=== PATIENT | female | born 1980 | race Caucasian/White ===

== ENCOUNTER 2018-09-15 08:09 | Inpatient (IN) | payer OTHER ==
[2018-09-15] VITALS (12 sets, daily range): BP systolic 94–122; BP diastolic 57–84
[~2018-09-15] VITALS: Ht 160 cm; Wt 90.3 kg
[2018-09-15] MEDS ORDERED: INSULIN REGULAR, HUMAN 300 UNIT/3 ML VIAL ONE (09:13)
[2018-09-15] MEDS ORDERED: POLYMYXIN B SULFATE 500,000 UNITS, BACITRACIN 50,000 UNITS, NORMAL SALINE 20 ML MC ONE ×3 (09:15)
[2018-09-15] MEDS ORDERED: diphenhydrAMINE 50 MG/1 ML VIAL MC ONE (09:16)
[2018-09-15] MEDS ORDERED: METOCLOPRAMIDE HCL 10 MG/2 ML VIAL IV ONE (09:16)
[2018-09-15] MEDS ORDERED: IV NORMAL SALINE 1000 ML BAG IV ONE (09:16)
[2018-09-15] MEDS ORDERED: PROPOFOL 200 MG/20 ML BOTTLE IV ONE (09:16)
[2018-09-15] MEDS ORDERED: IRR NORMAL SALINE IRRIGATION 1,000 ML BOTTLE IR ONE (09:16)
[2018-09-15] MEDS ORDERED: LIDOCAINE HCL 1% 20 ML VIAL MC ONE (09:16)
[2018-09-15] MEDS ORDERED: ONDANSETRON 4 MG/2 ML VIAL IV ONE (09:16)
[2018-09-15] MEDS ORDERED: SEVOFLURANE 250 ML BOTTLE IH ONE (09:16)
[2018-09-15] MEDS ORDERED: CEFAZOLIN 1 G VIAL MC ONE (09:16)
[2018-09-15 09:24] LABS: *URINE HCG, QUAL NEGATIVE (NEGATIVE)
[2018-09-15] MEDS ORDERED: BUPIVACAINE/EPI PF 0.5% 10 ML VIAL ONE (09:39)
[2018-09-15] MEDS ORDERED: MIDAZOLAM HCL 2 MG/2 ML VIAL ONE (09:56)
[2018-09-15] MEDS ORDERED: FENTANYL CITRATE 100 MCG/2 ML AMPUL ONE ×2 (09:56→12:54)
[2018-09-15] MEDS ORDERED: HYDROMORPHONE 2 MG/1 ML DISP.SYRIN ONE (09:56)
[2018-09-15] MEDS ORDERED: ROCURONIUM BROMIDE 50 MG/5 ML VIAL ONE (09:57)
[2018-09-15] MEDS ORDERED: ALBUTEROL SULFATE 2.5 MG/3 ML NEBU ONE (12:18)
[2018-09-15] MEDS ORDERED: IPRATROPIUM BROMIDE 0.5 MG/2.5 ML NEBU ONE (12:18)
[2018-09-15] MEDS ORDERED: diphenhydrAMINE 50 MG/1 ML VIAL ONE (12:49)
--- NOTE | 2018-09-15 14:20 | NUR ---
Received patient from Recovery nurse, oriented patient to room and recorded vital signs. Shortly after exiting the room patients' family yelled out that patient could not breathe. Evaluated patient to find that she had stridor. Rapid response called and orders received for a chest xray and solumedrol IV 125mg. Albuterol administered by Respiratory therapy. DEYANIRA Skinner was at the bedside and requested that the patient be put on telemetry and transfer to ICU as soon as possible.
--- NOTE | 2018-09-15 15:05 | NUR ---
Report called to Julio C WU in ICU and patient transported with Respiratory therapy and this advertising copywriter.
--- NOTE | 2018-09-15 15:05 | NUR ---
Full telephone SBAR report received by RN Mari 3rd floor.
[2018-09-15] MEDS ORDERED: ONDANSETRON 4 MG/2 ML VIAL IV PRN (15:30)
[2018-09-15] MEDS: KETOROLAC TROMETHAMINE 15 MG INJ IVP PRN (15:30)
[2018-09-15] MEDS ORDERED: IV NS 1000 ML 1,000 ML IV PRN (15:30)
[2018-09-15] MEDS ORDERED: methylPREDNISolone SOD SUCC 125 MG/2 ML VIAL IV ONE (15:30)
[2018-09-15] MEDS ORDERED: DEXTROSE 50% 50 ML DISP.SYRIN IV PRN (15:30)
[2018-09-15] MEDS ORDERED: INSULIN REGULAR, HUMAN 300 UNITS/3 ML VIAL SQ PRN (15:30)
[2018-09-15] MEDS ORDERED: ACETAMINOPHEN 325 MG TABLET PO PRN (15:30)
[2018-09-15] MEDS: FAMOTIDINE. 20 MG/2 ML VIAL IV SCH ×2 (15:42→20:57)
[2018-09-15] MEDS: ALBUTEROL SULFATE 1.25 MG/3 ML NEBU NEB SCH ×3 (15:48→23:03)
[2018-09-15] MEDS: IPRATROPIUM BROMIDE 0.5 MG/2.5 ML NEBU NEB SCH ×2 (15:49→19:29)
[2018-09-15] MEDS: BLOOD SUGAR DIAGNOSTIC 1 EACH STRIP VI SCH ×2 (15:54→21:00)
[2018-09-15] MEDS: INSULIN REGULAR, HUMAN 300 UNIT/3 ML VIAL SQ PRN ×2 (15:57→23:01)
[2018-09-15] MEDS: SENNOSIDES/DOCUSATE SODIUM TABLET PO SCH (16:59)
[2018-09-15 17:00] LABS: BASOPHILS % (AUTO) 0.3 % (0.0-2.0); EOSINOPHILS % (AUTO) 0.1 % (0.0-7.0); HEMATOCRIT 31.1 % (31.2-41.9); HEMOGLOBIN 9.8 g/dL (10.9-14.3); LYMPHOCYTES # (AUTO) 1.2 K/uL (20.0-40.0); LYMPHOCYTES % (AUTO) 11.3 % (20.5-51.5); MEAN CORPUSCULAR HEMOGLOBIN 21.4 uug (24.7-32.8); MEAN CORPUSCULAR HGB CONC 32 g/dL (32.3-35.6); MEAN CORPUSCULAR VOLUME 67.8 fL (75.5-95.3); MONOCYTES # (AUTO) 0.3 K/uL (2.0-10.0); MONOCYTES % (AUTO) 2.5 % (0.0-11.0); NEUTROPHILS # (AUTO) 8.9 K/uL (1.8-8.9); NEUTROPHILS % (AUTO) 85.8 % (38.5-71.5); PLATELET COUNT (AUTO) 436 K/uL (179-408); RED BLOOD CELL COUNT(AUTO) 4.59 MIL/uL (3.63-4.92); WHITE BLOOD COUNT (AUTO) 10.3 K/uL (3.8-11.8)
[2018-09-15 17:07] LABS: CREATININE 0.6 mg/dL (0.6-1.3); MAGNESIUM 1.7 mg/dL (1.8-2.4); PHOSPHOROUS 3.3 mg/dL (2.5-4.9); POTASSIUM 3.8 mmol/L (3.5-5.1)
--- NOTE | 2018-09-15 17:25 | NUR ---
DEYANIRA Skinner here to see pt. Full report given. New orders received.
[2018-09-15] MEDS: HYDROCODONE/APAP 5-325MG TABLET PO PRN (17:38)
[2018-09-15] MEDS: ENOXAPARIN SODIUM 40 MG/0.4 ML DISP.SYRIN SQ SCH (20:59)
[2018-09-15] MEDS: methylPREDNISolone SOD SUCC 40 MG/ML VIAL IV SCH (21:16)
[2018-09-16] VITALS (13 sets, daily range): BP systolic 90–133; BP diastolic 51–84
[2018-09-16] MEDS: KETOROLAC TROMETHAMINE 15 MG INJ IVP PRN ×3 (02:31→15:56)
[2018-09-16] MEDS: ALBUTEROL SULFATE 1.25 MG/3 ML NEBU NEB SCH ×6 (03:03→23:27)
--- NOTE | 2018-09-16 03:34 | NUR ---
1999- nurses notes- awake , alert, oriented. conversed with pt. while eating hs snack pt. voice out her complaint about the hospital , i talked to her that this hospital is good. pt. not happy to hear this.2099- pt calls to void. i told her she is in icu no bathroom in the room but then pt. condition use only 1 arm the left arm in sling with s/p lt. shoulder surgery i dont want her to have issue while she will be out of bed.since she complaint what she had been i padded the bed with big pad but pt urinated extra large volume of urine her urine travelled up to her left foot soak the big pad and also almost fill up the bedpan.she c/o already with rashes on this urine in her skin so i hurriedly with wash her. she decided to get up and i assisted her, she was taking pictures for everything inside the room hersef wth godwin,/ me. talked to her thats not allowed, i started to clean her mattress but hollering she need to get a new bed . new bed replaced and everyting i changed. gown, scd, new nasal cannula etc . foods, medications, water ice, ice pack to lt shoulder especially pain med given, everytime i change glove i let her to see the new glove box i take it from. even the supervisor tubing was there i took a new one she complaint i did not change the glove in my hand. i allowed her to all her request and demand especially her pain meds.
[2018-09-16] MEDS: methylPREDNISolone SOD SUCC 40 MG/ML VIAL IV SCH ×3 (06:08→23:12)
[2018-09-16] MEDS: HYDROCODONE/APAP 5-325MG TABLET PO PRN ×2 (06:49→11:39)
--- NOTE | 2018-09-16 07:30 | NUR ---
received report from night nurse, states pt in pain and was given norco at 0600.
[2018-09-16 07:39] LABS: BASOPHILS % (AUTO) 0.2 % (0.0-2.0); HEMATOCRIT 29.1 % (31.2-41.9); HEMOGLOBIN 9.4 g/dL (10.9-14.3); LYMPHOCYTES # (AUTO) 1.8 K/uL (20.0-40.0); LYMPHOCYTES % (AUTO) 17.2 % (20.5-51.5); MEAN CORPUSCULAR HEMOGLOBIN 21.8 uug (24.7-32.8); MEAN CORPUSCULAR HGB CONC 32 g/dL (32.3-35.6); MEAN CORPUSCULAR VOLUME 67.8 fL (75.5-95.3); MONOCYTES # (AUTO) 0.7 K/uL (2.0-10.0); MONOCYTES % (AUTO) 6.3 % (0.0-11.0); NEUTROPHILS # (AUTO) 8.2 K/uL (1.8-8.9); NEUTROPHILS % (AUTO) 76.3 % (38.5-71.5); PLATELET COUNT (AUTO) 430 K/uL (179-408); RED BLOOD CELL COUNT(AUTO) 4.29 MIL/uL (3.63-4.92); WHITE BLOOD COUNT (AUTO) 10.7 K/uL (3.8-11.8)
--- NOTE | 2018-09-16 07:44 | NUR ---
0600- slept well after giving the toradol 15mg iv given. ice pack to left shoulder. son at bedside. .endorsed.
--- NOTE | 2018-09-16 08:00 | NUR ---
pt c/o pain, 10/07, tried to change position, sittin up and giving lotion and relaxation breaths, pt has swelling to left shoulder and down the back and arm, good capilary refills to digits, sling in place, pt sat up to BSC, tolerated well with minimal assist, slight dizziness and rested before standing, 95%RA.
[2018-09-16] MEDS: IPRATROPIUM BROMIDE 0.5 MG/2.5 ML NEBU NEB SCH ×5 (08:08→23:28)
[2018-09-16 08:10] LABS: CREATININE 0.6 mg/dL (0.6-1.3); PHOSPHOROUS 3.8 mg/dL (2.5-4.9); POTASSIUM 3.8 mmol/L (3.5-5.1)
[2018-09-16] MEDS: BLOOD SUGAR DIAGNOSTIC 1 EACH STRIP VI SCH ×4 (08:31→21:03)
[2018-09-16] MEDS: INSULIN REGULAR, HUMAN 300 UNIT/3 ML VIAL SQ PRN ×4 (08:36→21:25)
[2018-09-16] MEDS: SENNOSIDES/DOCUSATE SODIUM TABLET PO SCH (09:22)
[2018-09-16] MEDS: FAMOTIDINE. 20 MG/2 ML VIAL IV SCH (09:28)
--- NOTE | 2018-09-16 10:00 | NUR ---
Pt ambulated down liz with PT 300 feet on RA, stand by assist, PT recommend cane, notified yard manager Sallie. Hooked pt back to monitor, denies pain.
--- NOTE | 2018-09-16 11:30 | NUR ---
Pt BS 311, covered with 16 units of insulin, pt moved from chair to bed, c/o pain 10/07. pt denies need to void at this time.
--- NOTE | 2018-09-16 12:30 | NUR ---
Report given to BRYCE Robb transported via w/c, pain 05/07
--- NOTE | 2018-09-16 12:39 | NUR ---
Report received from BRYCE Benedict.
[2018-09-16] MEDS: MORPHINE SULFATE 2 MG/1 ML DISP.SYRIN IM PRN (13:49)
--- NOTE | 2018-09-16 19:15 | NUR ---
PATIENT ALERT ORIENTED, NO SOB NO CHEST PAIN NOTED. CONT ON PAIN MANAGEMENT, ICE PACK IN PLACE OF LEFT SHOULDER FOR PAIN AND DISCOMFORT.COMPLAIN OF MILD PAIN WILL MEDICATED FOR PAIN ORDERED. PATIENT AMBULATE TO BATHROOM FOR BLADDER ELIMINATION. CALL LIGHT WITHIN REACH.
--- NOTE | 2018-09-16 19:28 | NUR ---
Ambulates with steady gait. Medicated for pain as ordered. sling on left arm. family at bedside. will continue to monitor.
[2018-09-16] MEDS: MAGNESIUM HYDROXIDE 30 ML LIQUID UDC PO PRN (21:01)
[2018-09-16] MEDS: FAMOTIDINE 20 MG TABLET PO SCH (21:01)
[2018-09-16] MEDS: HYDROCODONE/APAP 10-325 MG TABLET PO PRN (21:02)
[2018-09-16] MEDS: ENOXAPARIN SODIUM 40 MG/0.4 ML DISP.SYRIN SQ SCH (21:04)
[2018-09-16] MEDS: IBUPROFEN 600 MG TABLET PO PRN (23:13)
[2018-09-17] MEDS: ALBUTEROL SULFATE 1.25 MG/3 ML NEBU NEB SCH ×6 (00:22→20:19)
[2018-09-17 00:33] VITALS: BP 106/65
[2018-09-17] MEDS: HYDROCODONE/APAP 10-325 MG TABLET PO PRN ×3 (04:54→21:05)
[2018-09-17 05:07] VITALS: BP 103/73
[2018-09-17 05:47] LABS: BASOPHILS % (AUTO) 0.1 % (0.0-2.0); HEMATOCRIT 30.1 % (31.2-41.9); HEMOGLOBIN 9.5 g/dL (10.9-14.3); LYMPHOCYTES # (AUTO) 1.4 K/uL (20.0-40.0); LYMPHOCYTES % (AUTO) 12.1 % (20.5-51.5); MEAN CORPUSCULAR HEMOGLOBIN 21.5 uug (24.7-32.8); MEAN CORPUSCULAR HGB CONC 31 g/dL (32.3-35.6); MEAN CORPUSCULAR VOLUME 68.6 fL (75.5-95.3); MONOCYTES # (AUTO) 0.4 K/uL (2.0-10.0); MONOCYTES % (AUTO) 3.2 % (0.0-11.0); NEUTROPHILS # (AUTO) 9.5 K/uL (1.8-8.9); NEUTROPHILS % (AUTO) 84.6 % (38.5-71.5); PLATELET COUNT (AUTO) 414 K/uL (179-408); WHITE BLOOD COUNT (AUTO) 11.3 K/uL (3.8-11.8)
[2018-09-17] MEDS: methylPREDNISolone SOD SUCC 40 MG/ML VIAL IV SCH (06:26)
[2018-09-17] MEDS: BLOOD SUGAR DIAGNOSTIC 1 EACH STRIP VI SCH ×4 (06:33→21:00)
--- NOTE | 2018-09-17 06:40 | NUR ---
PATIENT ALERT ORIENTED, NO SOB NO CHEST PAIN, TELE MONITOR SINUS RHYTHM AT THIS TIME. CONT ON PAIN MANAGEMENT OF LEFT SHOULDER, SHOULDER OF SLING, KEPT COMFORTABLE. CALL LIGHT WITHIN REACH.
--- NOTE | 2018-09-17 07:00 | NUR ---
PATIENT AOX4, AWAKE IN BED. DAUGHTER WITH PATIENT AT BEDSIDE. PATIENT DENIES SOB OR CHEST PAIN. LT. ARM SLING IN PLACE. PATIENT DENIES PAIN AT THIS TIME. PATIENT ON TELE MONITOR SINUS RHYTHM HR 60'S. BED IN LOW POSITION AND LOCKED. CALL LIGHT IN REACH. ALL NEEDS MET AT THIS TIME. WILL CONTINUE TO MONITOR PATIENT.
[2018-09-17] MEDS: IPRATROPIUM BROMIDE 0.5 MG/2.5 ML NEBU NEB SCH ×4 (07:49→20:19)
[2018-09-17] MEDS: SENNOSIDES/DOCUSATE SODIUM TABLET PO SCH (08:44)
[2018-09-17] MEDS: FAMOTIDINE 20 MG TABLET PO SCH ×2 (08:44→20:53)
[2018-09-17] MEDS: INSULIN REGULAR, HUMAN 300 UNIT/3 ML VIAL SQ PRN ×3 (08:47→16:55)
[2018-09-17] MEDS: IBUPROFEN 600 MG TABLET PO PRN ×2 (08:57→23:15)
[2018-09-17 09:03] LABS: CREATININE 0.7 mg/dL (0.6-1.3); MAGNESIUM 2.4 mg/dL (1.8-2.4); POTASSIUM 4.3 mmol/L (3.5-5.1)
[2018-09-17] MEDS ORDERED: GABA-532 PO (09:54)
[2018-09-17] MEDS ORDERED: SUCR1TAB PO (09:54)
[2018-09-17] MEDS ORDERED: METF-495 PO (09:54)
[2018-09-17] MEDS ORDERED: Sennosides/Docusate Sodium PO (10:01)
[2018-09-17] MEDS ORDERED: METH4TAB3 PO (10:01)
[2018-09-17] MEDS ORDERED: FAMO20TA8 PO (10:01)
[2018-09-17] MEDS ORDERED: IBUP-1955 PO (10:01)
[2018-09-17 11:05] VITALS: BP 131/83
[2018-09-17] MEDS ORDERED: FUROSEMIDE 20 MG/2 ML VIAL IV ONE (12:00)
[2018-09-17] MEDS: MORPHINE SULFATE 2 MG/1 ML DISP.SYRIN IM PRN ×2 (12:00→16:41)
[2018-09-17] MEDS: predniSONE 20 MG TABLET PO SCH (12:30)
[2018-09-17] MEDS ORDERED: CALCIUM CARBONATE 500 MG TAB.CHEW PO PRN (12:45)
--- NOTE | 2018-09-17 12:59 | NUR ---
CONTACTED [employer] SALES CONSULTANT TO LET HER KNOW THAT PATIENT TAKES LISINOPRIL 2.5MG QD. ATORVASTATIN 10MG Q DAY. GABAPENTIN 100MG QHS. IN ADDITION TO THE OTHER HOME MEDICATIONS ALREADY LISTED AND ORDERED. PAYAL IS AWARE AND STATED SHE WILL ORDER.
[2018-09-17 15:11] VITALS: BP 115/69
[2018-09-17] MEDS ORDERED: Z GUARD REMEDY PASTE 57 GM TUBE TOP PRN (17:00)
--- NOTE | 2018-09-17 18:33 | NUR ---
PATIENT COMPLIANT WITH ALL CARE. PATIENT CONTINUES TO HAVE PAIN TO LEFT SHOULDER AND IS TREATED WITH MORPHINE, NORCO AND MOTRIN ORDERED. ALL NEEDS MET THROUGHOUT THE SHIFT. REPORT TO BE GIVEN TO ONCOMING NURSE.
--- NOTE | 2018-09-17 20:00 | NUR ---
Pt. resting in bed AO x 4. Pt. has IV in R hand 22 gauge hep lock, patent, intact. Pt. states she has 4/10 pain in left arm. Assessed pt.'s pain and will give PRN pain medication. Pt. denies any SOB or difficulty breathing. Educated pt. on importance of using Incentive Spirometer. Family at bedside. SCD on bilaterally. Safety measures in place. Will continue to monitor.
[2018-09-17] MEDS: ENOXAPARIN SODIUM 40 MG/0.4 ML DISP.SYRIN SQ SCH (20:55)
[2018-09-17] MEDS ORDERED: GABAPENTIN 100 MG CAPSULE PO SCH (21:00)
[2018-09-17] MEDS ORDERED: INSULIN GLARGINE,HUM 300 UNITS/3 ML CARTRIDGE SQ SCH (21:00)
[2018-09-17] MEDS ORDERED: ATORVASTATIN 10 MG TABLET PO SCH (21:00)
[2018-09-18] MEDS: predniSONE 20 MG TABLET PO SCH ×2 (00:04→12:33)
[2018-09-18] MEDS: MORPHINE SULFATE 2 MG/1 ML DISP.SYRIN IM PRN ×2 (01:37→10:06)
[2018-09-18] MEDS: ALBUTEROL SULFATE 1.25 MG/3 ML NEBU NEB SCH ×5 (03:30→16:09)
[2018-09-18] MEDS: HYDROCODONE/APAP 10-325 MG TABLET PO PRN ×3 (05:36→18:23)
[2018-09-18 05:38] VITALS: BP 112/66
[2018-09-18] MEDS: MAGNESIUM HYDROXIDE 30 ML LIQUID UDC PO PRN (06:34)
[2018-09-18] MEDS: BLOOD SUGAR DIAGNOSTIC 1 EACH STRIP VI SCH ×3 (06:36→16:43)
[2018-09-18 06:41] LABS: CREATININE 0.7 mg/dL (0.6-1.3); PHOSPHOROUS 3.6 mg/dL (2.5-4.9); POTASSIUM 4.5 mmol/L (3.5-5.1)
[2018-09-18 06:44] LABS: BASOPHILS % (AUTO) 0.1 % (0.0-2.0); HEMATOCRIT 29.5 % (31.2-41.9); HEMOGLOBIN 9.4 g/dL (10.9-14.3); LYMPHOCYTES % (AUTO) 18.9 % (20.5-51.5); MEAN CORPUSCULAR HEMOGLOBIN 21.6 uug (24.7-32.8); MEAN CORPUSCULAR HGB CONC 32 g/dL (32.3-35.6); MEAN CORPUSCULAR VOLUME 67.9 fL (75.5-95.3); MONOCYTES # (AUTO) 0.5 K/uL (2.0-10.0); MONOCYTES % (AUTO) 4.7 % (0.0-11.0); NEUTROPHILS # (AUTO) 8.1 K/uL (1.8-8.9); NEUTROPHILS % (AUTO) 76.3 % (38.5-71.5); PLATELET COUNT (AUTO) 418 K/uL (179-408); RED BLOOD CELL COUNT(AUTO) 4.34 MIL/uL (3.63-4.92); WHITE BLOOD COUNT (AUTO) 10.6 K/uL (3.8-11.8)
--- NOTE | 2018-09-18 06:47 | NUR ---
Pt. slept intermittently throughout night. Pt. in bed AO x 4. Pt. has IV in R hand 22 gauge hep lock, patent, intact. Pt. denies any SOB or difficulty breathing. PRN paid meds given as needed. Pain management effective. Milk of magnesia given for constipation in addition to prune juice. No BM yet. Daughter at bedside. SCD on bilaterally. Safety measures in place. Will endorse to AM nurse.
[2018-09-18 07:34] LABS: BASOPHILS % (MANUAL) 1 % (0-2); EOSINOPHILS % (MANUAL) 1 % (0-8); LYMPHOCYTES % (MANUAL) 22 % (20-40); MONOCYTES % (MANUAL) 6 % (2-10); NEUTROPHILS % (MANUAL) 70 % (42-75)
[2018-09-18] MEDS: IPRATROPIUM BROMIDE 0.5 MG/2.5 ML NEBU NEB SCH ×4 (07:38→16:09)
[2018-09-18] MEDS ORDERED: LISINOPRIL 5 MG TABLET PO SCH (09:00)
[2018-09-18] MEDS: INSULIN REGULAR, HUMAN 300 UNIT/3 ML VIAL SQ PRN ×3 (09:57→16:51)
[2018-09-18 09:58] VITALS: BP 112/66
[2018-09-18] MEDS: FAMOTIDINE 20 MG TABLET PO SCH (09:58)
[2018-09-18] MEDS: SENNOSIDES/DOCUSATE SODIUM TABLET PO SCH (09:58)
[2018-09-18] MEDS: IBUPROFEN 600 MG TABLET PO PRN (12:18)
[2018-09-18] MEDS ORDERED: MORPHINE SULFATE 2 MG/1 ML DISP.SYRIN IV PRN (13:00)
[2018-09-18] MEDS ORDERED: FLUC150T PO (13:28)
[2018-09-18] MEDS ORDERED: DIPH25CA83 PO (13:28)
[2018-09-18] MEDS ORDERED: GABA-532 PO (13:34)
--- NOTE | 2018-09-18 18:16 | NUR ---
Patient given education about discharge instructions. All belongings and Valuables given to patient. Patient discharged home ; patient going in private car with sister.
== END 2018-09-18 18:50 | disposition home or self-care (01) | DRG 907 ==
LOC: DS 08:09 → EDBD 09:35 → MEDSURG3 14:38 → TELE3 14:47 → CCU 15:15 → TELE3 09-16 12:45 → MEDSURG3 09-17 13:00
PROVIDERS: ADMIT Nurse Practitioner Acute Care; ATTEND Orthopaedic Surgery
PROC: 0RNK0ZZ Release Left Shoulder Joint, Open Approach (ICD-10-PCS; principal; 2018-09-15)
PROC: 0LQ20ZZ Repair Left Shoulder Tendon, Open Approach (ICD-10-PCS; principal; 2018-09-15)
DX: T78.2XXA Anaphylactic shock, unspecified, initial encounter (principal); J96.01 Acute respiratory failure with hypoxia; D68.59 Other primary thrombophilia; M75.102 Unspecified rotator cuff tear or rupture of left shoulder, not specified as traumatic; E66.01 Morbid (severe) obesity due to excess calories; E11.65 Type 2 diabetes mellitus with hyperglycemia; G47.33 Obstructive sleep apnea (adult) (pediatric); Z79.4 Long term (current) use of insulin; B37.9 Candidiasis, unspecified
CPT/HCPCS: 36415; 71045; 83735; 84100; 84703; 85025; 93307; 94640; 94664; 97116; A4217; A4565; A4649; A4663; G0378; J0690; J1170; J1200; J1650; J1815; J1885; J1940; J2250; J2270; J2405; J2765; J2920; J2930; J3010; J3490; J3590; J7030; J7512